=== PATIENT | female | born 1970 | race Caucasian/White ===

== ENCOUNTER → 2017-12-05 | Outpatient (CLI) | payer MEDICAID ==
--- NOTE | 2017-12-05 14:45 | RADIOLOGY REPORT (SQ) ---
EXAM DESCRIPTION: HIP RIGHT AP/LATERAL COMPLETED DATE/TIME: 12/05/2017 1:27 pm REASON FOR STUDY: PAIN IN RIGHT HIP (M25.551), PAIN IN LEFT HIP (M25.552) M25.551 PAIN IN RIGHT HIP M25.552 PAIN IN LEFT HIP COMPARISON: None. NUMBER OF VIEWS: Two views. TECHNIQUE: AP pelvis and additional frog-leg view of the right hip. LIMITATIONS: None. FINDINGS: MINERALIZATION: Normal. RIGHT HIP: No fracture or dislocation. No worrisome bone lesions. LEFT HIP: No fracture or dislocation. No worrisome bone lesions. PUBIS AND ISCHIUM: There is bony sclerosis at the level of the pubic symphysis most consistent with d egenerative changes. PELVIS: No fracture. SACRUM: No fracture or dislocation. No worrisome bone lesions. LOWER LUMBAR SPINE: No fracture or dislocation. No worrisome bone lesions. No significant disc disea se. SOFT TISSUES: No findings. OTHER: No other significant finding. IMPRESSION: No acute fracture or dislocation. Other findings as noted above TECHNICAL DOCUMENTATION: JOB ID: [id number] [employer]- All Rights Reserved
== END ==
LOC: RAD 13:06
PROVIDERS: ATTEND Physician Assistant
DX: M25.551 Pain in right hip (principal); M25.552 Pain in left hip

== ENCOUNTER 2019-07-08 10:52 | Emergency (ER) | payer SELFPAY ==
--- NOTE | 2019-07-08 11:23 | ER Document Report ---
HPI - HPI Patient complains to provider of: RIGHT FOOT PAIN Time Seen by Provider: 07/08/19 11:09 Onset: Yesterday Onset/Duration: Sudden Quality of pain: Achy, Pressure, Throbbing Pain Level: 2 Context: This 48-year-old female presents emergency department with complaints of right dorsal foot pain. Patient reports that she [place] [facility] [place] [address] [place] and felt the pain in her foot. She reports she noticed swelling to the top of her foot. No bite [place]. She took Benadryl Motrin without relief of symptoms. Reports it feels like the whole foot is starting to swell now. Denies other symptoms such as fever vomiting diarrhea. She denies pain when she walks around. Only pain at the top of her foot. She has good cap refill. Pulses equal bilaterally Associated Symptoms: None Exacerbated by: Other - Pressure on the foot by shoe Relieved by: Denies Similar symptoms previously: No Recently seen / treated by doctor: No - REPRODUCTIVE Reproductive: DENIES: : Past Medical History - General Information source: Patient Last Menstrual Period: Hysterectomy - Social History Smoking Status: Current Every Day Smoker Cigarette use (# per day): Yes Frequency of alcohol use: None Drug Abuse: None Family History: Arthritis, CAD, CVA, DM, Hyperlipidemia, Hypertension, Malignancy Patient has suicidal ideation: No Patient has homicidal ideation: No Pulmonary Medical History: Reports: Hx Asthma Musculoskeletal Medical History: Reports Hx Arthritis, Reports Hx Musculoskeletal Deformity, Reports Hx Musculoskeletal Trauma Psychiatric Medical History: Reports: Hx Anxiety, Hx Depression - Panic Disorder Traumatic Medical History: Reports: Hx Fractures - Right leg Past Surgical History: Reports: Hx Hysterectomy, Hx Oral Surgery - With 10 to - Immunizations Hx Diphtheria, Pertussis, Tetanus Vaccination: Yes - unknown last Vertical Provider Document - CONSTITUTIONAL Agree With Documented VS: Yes Exam Limitations: No Limitations General Appearance: WD/WN, No Apparent Distress - INFECTION CONTROL TRAVEL OUTSIDE OF THE [place] IN LAST 30 DAYS: No - HEENT HEENT: Atraumatic, Normocephalic - NECK Neck: Supple - RESPIRATORY Respiratory: No Respiratory Distress - CARDIOVASCULAR Cardiovascular: Regular Rate - MUSCULOSKELETAL/EXTREMETIES Musculoskeletal/Extremeties: MAEW, FROM, Tender - Right dorsal foot 4-5 Metarsal distal with soft swelling proximately 2 and half centimeters around. No erythema no warmth no pustule no ecchymosis. Good cap refill. Bilateral pedal pulses equal. - NEURO Level of Consciousness: Awake, Alert, Appropriate Motor/Sensory: No Motor Deficit - DERM Integumentary: Warm, Dry Adult Front & Back Diagram: 1 - 21/2 centimeter round soft swelling Course - Re-evaluation Re-evalutation: 07/08/19 No signs of infection x-ray negative. Patient was instructed on ice monitor the site. She was instructed on signs and symptoms of infection instructed return for concerns she verbalized understanding to all instructions. dictation of this chart was performed using voice recognition software; therefore, there may be some unintended grammatical errors. Foot X-Ray 07/08/19 11:19 IMPRESSION: NEGATIVE STUDY OF THE RIGHT FOOT. NO RADIOGRAPHIC EVIDENCE OF ACUTE INJURY. - Vital Signs Vital signs: Temp Pulse Resp BP Pulse Ox 97.6 F 86 20 114/74 97 07/08/19 10:59 07/08/19 10:59 07/08/19 10:59 07/08/19 10:59 07/08/19 10:59 - Diagnostic Test Radiology reviewed: Image reviewed, Reports reviewed Discharge - Discharge Clinical Impression: Right foot pain Condition: Stable Disposition: HOME, SELF-CARE Instructions: Use of Tbhx-Urb-Agktgzh Ibuprofen ([facility]), Ice & Elevation ([facility]) Additional Instructions: *You have been evaluated for FOOT PAIN *Monitor the site for signs of infection such as redness increased swelling increased pain *Rest/Ice/Elevate your foot, take Motrin as indicated *Follow up with a primary care provider within 1 week for recheck or return to the emergency department for signs of infection or worsening condition. *Return to ED for worsening condition, changes, needs Referrals: ISAIAH JOHNSON MD [Primary Care Provider] - Follow up in 3-5 days
--- NOTE | 2019-07-08 11:41 | RADIOLOGY REPORT (SQ) ---
EXAM DESCRIPTION: FOOT RIGHT COMPLETE COMPLETED DATE/TIME: 07/08/2019 11:33 am REASON FOR STUDY: PAIN SWELLING COMPARISON: None. NUMBER OF VIEWS: Three views. TECHNIQUE: AP, lateral and oblique radiographic images acquired of the right foot. LIMITATIONS: None. FINDINGS: MINERALIZATION: Normal. BONES: No acute fracture or dislocation. No worrisome bone lesions. JOINTS: No effusions. SOFT TISSUES: No soft tissue swelling. No foreign body. OTHER: No other significant finding. IMPRESSION: NEGATIVE STUDY OF THE RIGHT FOOT. NO RADIOGRAPHIC EVIDENCE OF ACUTE INJURY. TECHNICAL DOCUMENTATION: JOB ID: [id number] [employer]- All Rights Reserved Reading location - IP/workstation name: [email or web address]
[2019-07-08 12:13] VITALS: BP 111/68
== END 2019-07-08 12:13 | disposition home or self-care (01) ==
LOC: ER 10:52
DX: M79.671 Pain in right foot (principal); F17.210 Nicotine dependence, cigarettes, uncomplicated; Z90.710 Acquired absence of both cervix and uterus
CPT/HCPCS: 99283